=== PATIENT | male | born 2000 | race Two or more races ===

== ENCOUNTER 2021-03-21 07:17 | Emergency (ER) | payer OTHER ==
[~2021-03-21] VITALS: Ht 175.3 cm; Wt 66.4 kg
--- NOTE | 2021-03-21 07:22 | PHYS DOC ---
General Adult EDM: Chief Complaint: BACK PAIN OR INJURY HPI: HPI: Patient is a 20 year old male without pertinent past medical history who presents with lower back pain. Symptoms started 2 weeks ago. He was working and repetitively lifted a lot of boxes, the next morning he woke up and had bad lower back pain. Worse with movement of the legs and with walking. The pain does radiate to the buttocks on both sides. Denies weakness or numbness in the legs. Denies saddle anesthesia. Denies bowel/bladder incontinence. No fevers or chills. No immunosuppression history. No IVDU. No history of back surgery. No trauma. Has been taking Aleve for his pain and was prescribed it once daily diazepam after being seen by a different facility. Review of Systems: Review of Systems: Constitutional: Denies fever or chills. [] Eyes: Denies change in visual acuity. [] HENT: Denies nasal congestion or sore throat. [] Respiratory: Denies cough or shortness of breath. [] Cardiovascular: Denies chest pain or edema. [] GI: Denies abdominal pain, nausea, vomiting, bloody stools or diarrhea. [] : Denies dysuria. [] Musculoskeletal: Reports lower back pain. Denies joint pain. [] Integument: Denies rash. [] Neurologic: Denies headache, focal weakness or sensory changes. [] Endocrine: Denies polyuria or polydipsia. [] Lymphatic: Denies swollen glands. [] Psychiatric: Denies depression or anxiety. [] Heart Score: C/O Chest Pain: No Physical Exam: PE: Constitutional: Well developed, well nourished, appears uncomfortable seated in chair. HENT: Normocephalic, atraumatic Cardiovascular:Heart rate regular rhythm, no murmur [] Lungs & Thorax: Normal work of Back: No midline or paraspinal tenderness to palpation. No overlying skin changes. Extremities: No tenderness, no cyanosis, no clubbing, ROM intact, no edema. [] Neurologic: Alert and oriented X 3, normal motor function, normal sensory function, no focal deficits noted. Intact heel and toe walking [] Specifically 5/5 strength bilaterally in: Hip flexion Hip adduction Knee flexion/extension Plantar flexion/dorsiflexion of the ankle Dorsiflexion of the great toe Psychologic: Affect normal, judgement normal, mood normal. [] EKG: EKG: [] Radiology/Procedures: Radiology/Procedures: [] Course & Med Decision Making: Course & Med Decision Making Pertinent Labs and Imaging studies reviewed. (See chart for details) Patient a 20-year-old male without pertinent past medical history presents with 2 weeks of lower back pain after repetitive lifting. He has no red flags such as weakness, numbness, saddle anesthesia, bowel/bladder dysfunction, fever, trauma, back surgery history, IVDU/immunosuppression. Strength is intact as above. Do not feel that he has an emergency indication for MRI. Do not feel that CT or XR imaging would be helpful as I have a very low suspicion for bony injury. Pain is been refractory to Aleve and diazepam. We will transition to prednisone and cyclobenzaprine. I have asked him to discontinue his previous medications. He is counseled on red flag symptoms and when to return to the emergency department. He will call his PCPs office to schedule follow-up appointment to discuss other treatment modalities. [id number] Disclaimer: John Disclaimer: This electronic medical record was generated, in whole or in part, using a voice recognition dictation system. Departure Departure Impression: Primary Impression: Lumbar back pain Disposition: HOME / SELF CARE / HOMELESS Condition: STABLE Patient Instructions: Low Back Strain with [facility]hab[facility] Additional Instructions: Please discontinue the Aleve and diazepam while you are taking these new medications. Take prednisone 50 mg once daily for 5 days. You can take cyclobenzaprine, a muscle relaxer, up to 3 times a day. This can make you drowsy, so please monitor your symptoms and do not drive or operate machinery while on this medication. Please schedule follow-up appointment with your primary care doctor to discuss other treatments such as physical therapy moving forward. Return to the emergency department if you have weakness in your legs, numbness in your groin area, fever/chills, or you have difficulty or incontinence with urination or bowel movements. Scripts Cyclobenzaprine Hcl (CYCLOBENZAPRINE HCL) 10 Mg Tablet 1 TAB PO TID, #30 TAB 0 Refills Prov: KUMAR WEBER MD 03/21/21 Prednisone (PREDNISONE) 50 Mg Tablet 1 TAB PO DAILY, #5 TAB 0 Refills Prov: KUMAR WEBER MD 03/21/21 KUMAR WEBER MD Mar 21, 2021 07:22
[2021-03-21 07:34] VITALS: BP 117/63
[2021-03-21] MEDS ORDERED: PRED50TA PO (07:50)
[2021-03-21] MEDS ORDERED: CYCL10TA19 PO (07:50)
== END 2021-03-21 07:50 | disposition home or self-care (01) ==
LOC: ER 07:17
DX: M54.50 Low back pain, unspecified (principal)
CPT/HCPCS: 99283